=== PATIENT | male | born 1955 | race Caucasian/White ===

== ENCOUNTER 2018-04-30 05:12 | Inpatient (IN) ==
--- NOTE | 2018-04-29 12:12 | MH ---
cc: Andriy Alejandra MD DATE OF ADMISSION: 04/30/2018 He is to be admitted to the hospital 04/30/2018. ADMITTING DIAGNOSIS: Osteoarthritis, right knee. HISTORY OF PRESENT ILLNESS: The patient is a 63-year-old white male who has experienced pain of his right knee of greater than 1 year duration. His history is significant for having been diagnosed with osteoarthritis of his left knee, for which he did undergo a total knee arthroplasty in August 2015. The patient was noted to have tolerated his operative procedure well and his postoperative course was unremarkable thereafter. He presented to the office in April of this past year reporting that he was becoming progressively more symptomatic with pain about his right knee, having difficulty with any prolonged standing activities for which he was taking meloxicam on a daily basis. His x-ray studies revealed obvious degenerative changes with [id number] apposition about the medial compartment, associated with a varus deformity of at least 10 degrees magnitude and hypertrophic changes along the lateral aspect of the knee joint and secondary involvement of the patellofemoral articulation. Findings and treatment options were reviewed with the patient at that time. The pros and cons of continued conservative management versus operative intervention involving total knee arthroplasty were outlined in detail. Once again, it was emphasized to the patient that the decision to proceed with surgery would be left entirely to his discretion. The patient elected to continue with exercise activities at that time following the protocol that he had been instructed with regard to his previous treatment. He unfortunately remains symptomatic with pain about of his right knee that became more pronounced with the passage of time. He returned to the office in more recent followup disposition reporting that he was having ongoing difficulty about the right knee that was interfering with all ambulatory activities and feeling that he had progressed to a point in time where he was ready to proceed with surgery as discussed. His x-ray studies confirmed obvious degenerative changes throughout the medial aspect of his knee with secondary involvement of the patellofemoral articulation and residual varus deformity of at least 10 degrees magnitude. In compliance with the patient's request, he was thus scheduled for admission at this time in order that the above be accomplished. PAST MEDICAL HISTORY, HOSPITALIZATIONS AND SURGERIES: In addition to his left total knee arthroplasty have included arthroscopic surgery of his right knee, tonsillectomy, laser surgery of the left eye for a torn retina colonoscopy. The patient denies any active medical illnesses. He has been taking meloxicam 15 mg daily. ALLERGIES: HE DENIES ANY KNOWN DRUG ALLERGIES. REVIEW OF SYSTEMS: Wears contact lenses and utilizes glasses for reading purposes. No headache, seizure or syncope; occasional sinus congestion secondary to environmental irritant. No epistaxis. Auditory acuity intact, occasional tinnitus. No bleeding gums or dysphagia. No cough, shortness of breath, upper respiratory infection, pneumonia, or tuberculosis. No angina or heart disease. Appetite is good. Bowel movements are regular. No hepatitis, gallbladder disease, ulcers or hemorrhoids. No urinary tract infection, no kidney stones. There is history of fracture of his left elbow during childhood, treated by cast immobilization. No psychiatric illness. Remaining review of systems is unremarkable and noncontributory. FAMILY HISTORY: 23 years. 65 years of age, in good health. One stepdaughter indicated to be in good health. FAMILY HISTORY: Positive for hypertension and heart disease. SOCIAL HISTORY: The patient completed a college education. He is actively employed. Denies active use of tobacco. Ethanol consumption in the form of an occasional beer. PHYSICAL EXAMINATION: VITAL SIGNS: Height 6 feet 2 inches, weight 243 pounds. GENERAL: An alert, oriented, and responsive 63-year-old white male who sits quietly upon the examination table in no obvious distress. HEAD, EARS, EYES, NOSE AND THROAT: Pupils are equally round and reactive to light. Extraocular movements full. Sclerae are clear. External nares clear. External auditory canals clear. Dental intact. Mucous membranes pink and moist. Pharynx clear. NECK: Supple. Active range of motion with no appreciable pain. Carotid pulse is palpable bilaterally. Trachea midline. Thyroid without thyroid enlargement. LUNGS: Clear to auscultation and percussion. No CVA tenderness. No discomfort throughout the dorsolumbar spine. HEART: Regular rate and rhythm. No murmur or gallop. ABDOMEN: Soft, nontender, bowel sounds present. RECTAL: Per primary care physician. EXTREMITIES: Right knee: No appreciable swelling or effusion. No joint line tenderness. Apprehension and compression sign negative. Limited mobility towards the extreme of flexion with crepitation elicited. No collateral ligamentous laxity. Janeen test and drawer sign negative. Pivot shift and Rosangela sign positive for medial compartment pain. Distal sensory grossly intact. Independent gait. NEUROLOGIC: Cranial nerves 2-12 grossly intact. IMPRESSION: Osteoarthritis, right knee. PLAN: Right total knee arthroplasty: The nature of the planned surgical procedure, the potential complications and risks associated, the expectations of surgery and the consent form were thoroughly reviewed with the patient in the presence of his prior to admission to the hospital. The patient has indicated his full understanding regarding all of the above and given consent to proceed with treatment as outlined. Medical evaluation and clearance for surgery completed by his primary care physician, Dr. Smith. MD NEO Baez/carlos , 11:43 AM , 11:57 AM
[2018-04-30] MEDS ORDERED: Metoprolol Tartrate 25 MG Tablet PO ONE (05:43)
[2018-04-30] MEDS ORDERED: Chlorhexidine Gluconate 2% 1 Pack (2 Cloths) TOPICAL ONE (05:43)
[2018-04-30] MEDS ORDERED: Sodium Chlor 0.9% Inj 50 ML, Bupivacaine Liposo PF 1.3% Inj 20 ML, Bupivacaine PF 0.25%... P-ARTICULR SCH ×3 (05:46)
[2018-04-30] MEDS ORDERED: Tranexamic Acid Inj 1,000 MG in Sodium Chlor 0.9% Inj 100 ML IV.SIG SCH ×3 (06:00→10:30)
[2018-04-30] MEDS ORDERED: Sodium Chlor 0.9% Inj 500 ML IV.SIG SCH (06:00)
[2018-04-30] MEDS ORDERED: ceFAZolin 2 GM Premix Inj 2 GM/50 ML PIGGYBACK IV.SIG SCH (06:00)
[2018-04-30] MEDS ORDERED: TRANEXAMIC ACID IV.SIG SCH ×2 (06:00→08:50)
[2018-04-30] MEDS ORDERED: SODIUM CHLOR 0.9% IV.SIG SCH ×2 (06:00→08:50)
[2018-04-30] MEDS ORDERED: Lidocaine PF 1% Inj 5 ML Vial ONE (06:14)
[2018-04-30] MEDS ORDERED: Lidocaine PF 1% Inj 5 ML Syringe OTHER ONE (06:43)
[2018-04-30] MEDS ORDERED: Ketorolac Inj 30 MG/ML (IVP) Vial IV.PUSH ONE (06:43)
[2018-04-30] MEDS ORDERED: Glycopyrrolate Inj 1 MG/5 ML Syringe IV.PUSH ONE (06:43)
[2018-04-30] MEDS ORDERED: Neostigmine Inj 5 MG/5 ML Syringe IV.PUSH ONE (06:43)
[2018-04-30] MEDS ORDERED: fentaNYL Citrate Inj 100 MCG/2 ML Ampul ONE ×2 (09:16→09:18)
[2018-04-30] MEDS ORDERED: Morphine Inj 4 MG/ML Vial ONE (09:16)
[2018-04-30] MEDS ORDERED: Morphine Inj 4 MG/ML Vial IV.PUSH PRN (09:23)
[2018-04-30] MEDS ORDERED: Aluminum/Magnesium/Simethacone Susp 30 ML UDC PO PRN (09:23)
[2018-04-30] MEDS ORDERED: Zolpidem Tartrate 5 MG Tablet PO PRN (09:23)
[2018-04-30] MEDS ORDERED: Morphine Inj 30 MG/30 ML PCA.VIAL PCA PRN (09:23)
[2018-04-30] MEDS ORDERED: Tranexamic Acid Inj 1,000 MG in Sodium Chlor 0.9% Inj 100 ML IV.SIG ONE (09:23)
[2018-04-30] MEDS ORDERED: Post-op Orders (for Pharmacy) OTHER STA (09:23)
[2018-04-30] MEDS ORDERED: Bisacodyl 10 MG Supp RECTAL PRN (09:23)
[2018-04-30] MEDS ORDERED: Naloxone Inj 0.4 MG/ML Vial IV.PUSH PRN (09:23)
--- NOTE | 2018-04-30 09:25 | P.DCO ---
- Diagnosis (1) Degenerative joint disease of knee, right Status: Acute - Physical Therapy Order: Evaluate and treat, Improve ambulation, Strength and gait training - Home Health Nursing Order: Wound care and dressing changes, Nursing assessment with vital signs - Executive Secretary Social Welfare Order: To evaluate: Living conditions/environment, Support services Order: To provide: Long range planning, Community services - Case Management Consult Case Management Consult-Home Health: Yes - Certification I have seen patient Shannan Kaiser on 04/30/18. My clinical findings support the need for the requested home health care services because: Limited ability to care for self, High risk of falls I certify that my clinical findings support that this patient is homebound because: Post-op weakness, Unsteady gait/balance, Unsafe to leave home unassisted (1) Degenerative joint disease of knee, right Qualifiers: Osteoarthritis type: primary Qualified Code(s): M17.11 - Unilateral primary osteoarthritis, right knee
[2018-04-30] MEDS ORDERED: Morphine Inj 30 MG/30 ML PCA.VIAL PCA ONE (09:34)
[2018-04-30] MEDS ORDERED: *morphine SULFATE 4 MG/ML PERIprocedure ONLY ONE ×2 (09:35→10:05)
[2018-04-30] MEDS ORDERED: *Meperidine Inj 25 MG/ML Vial PERIprocedural Use ONLY ONE (09:36)
--- NOTE | 2018-04-30 09:50 | MP ---
cc: Andriy Alejandra MD DATE OF OPERATION: 04/30/2018 PREOPERATIVE DIAGNOSIS: Osteoarthritis, right knee. POSTOPERATIVE DIAGNOSIS: Osteoarthritis, right knee. PROCEDURE PERFORMED: Right total knee arthroplasty. SURGEON: Andriy Alejandra MD. ANESTHESIA: General endotracheal. INDICATIONS: A 63-year-old white male with a history of pain of his right knee of greater than 1 year duration. He had undergone previous evaluation and diagnosed as having osteoarthritis of his left knee for which he had completed a total knee arthroplasty in 08/2015. He tolerated the operative procedure well and his postoperative course was unremarkable thereafter. He presented to the office in April of this past year reporting that he was becoming progressively more symptomatic with a similar pain about his right knee, having difficulty with any prolonged standing activities. He has been taking meloxicam on a daily basis. His x-ray studies revealed obvious degenerative changes with [id number] apposition about the medial compartment, associated with a varus deformity, I believe, 10 degrees in magnitude and hypertrophic changes along the lateral aspect of the joint and secondary involvement of the patellofemoral articulation. Findings and treatment options were reviewed. The pros and cons of continued conservative management versus operative intervention involving total knee arthroplasty were outlined. Once again, it was emphasized that the decision to proceed with surgery would be left entirely to the patient's discretion. Initially, the patient elected to continue with exercise activities following the protocol that he had been instructed in the past. Unfortunately, the symptoms became more pronounced with time. He returned to the office in more recent followup indicating that he felt he had arrived at that point in time where he was ready to proceed with surgery as previously discussed. In compliance with his wishes, he was scheduled for admission at this time in order that the above be accomplished. FORMAT: Following the induction of satisfactory general anesthesia by endotracheal intubation as completed per the department of anesthesia, a tourniquet was established around the proximal portion of the right lower extremity. The extremity proper was isolated with a U-drape, thereafter being prepped with Betadine solution and draped into a sterile field in the routine manner. Prior to initiation of the actual procedure, the standard timeout protocol was completed. All parameters were appropriately addressed and confirmed by operating room personnel. The extremity was elevated for approximately 1 minute and the tourniquet thus inflated to 250 mmHg pressure. A sharp skin incision was initiated midline over the anterior aspect of the knee and developed through underlying subcutaneous tissue with hemostasis maintained by electrocautery. By deepening dissection, the anterior capsule was exposed. A medial capsulotomy completed and the patella subluxed in a lateral orientation. Examination of the joint space revealed severe tricompartmental degenerative changes as well as absence of the anterior cruciate ligament. The articular surface of the patella was resected with power saw, the 3-holed guide utilized for establishing post-holes. Medial and lateral meniscus structures were sharply excised. A centering hole was placed in the distal aspect of the femur, allowing positioning of the intramedullary guide. The distal femoral cutting jig attached and the distal femur resected. AP measurement of 70 mm sizing to be appropriate. The matching cutting block was positioned. Anterior, posterior, and chamfer cuts were completed. Tibial plateau was thereafter subluxed in an anterior orientation allowing positioning of the extramedullary guide. Tibial plateau was resected and measured with a 3 mm sizing determined to be satisfactory. Trial reduction followed utilizing a 70 mm anatomic femoral component, an 83 mm tibial base with 10, 12, 14, and 16 mm bearing inserts trialed in sequential fashion. The 16 mm thickness was determined to be the most favorable fit. The knee was readily brought to full extension. There was no laxity with varus and valgus stress at both 0 and 90 degrees flexed posture. Orientation was confirmed as appropriate with measurement of the pelvic guide through the mechanical access of the knee. Trial reduction followed utilizing a 34 mm patellar button. Once again, good tracking noted, no tendency towards subluxation. All trial components being removed, the remaining portion of the proximal tibia was prepared for insertion of the permanent component. Joint space thoroughly lavaged with pulsating antibiotic solution. Hemostasis was maintained by electrocautery. An autogenous bone plug was inserted into the distal femoral guide hole and thereafter a preparation of Biomet bone cement was utilized in inserting knee components in a sequential fashion, which included an 83 mm fixed cruciate tibial plate, to which a 16 mm Vanguard tibial bearing insert was secured with locking cox. The 70 mm Vanguard femoral component was firmly seated onto the distal femur, excess cement being removed. The knee was brought to full extension and thereafter the 34 mm standard 3 post-patellar button was attached and maintained in place with patellar clamp while cement hardening was completed. Final range of motion assessment noted good tracking stability throughout the knee. Irrigation repeated with hemostasis maintained. Autovac drain tubes were inserted through superior stab wounds. The capsule was repaired with 0 Vicryl suture. Remaining portion of the wound was closed in layers in the routine manner with skin margins being reapproximated with a running subcuticular 3-0 Vicryl suture over which Steri-Strips were applied. Xeroform gauze and dry sterile dressing placed. An Exparel cocktail was injected both pre and post-implantation. Anesthesia was discontinued and the patient was transferred to a hospital bed and returned to the recovery room in satisfactory condition, having tolerated the operation well. Total tourniquet time was 50 minutes. ESTIMATED BLOOD LOSS: Approximately 350 mL per anesthesia. Andriy Alejandra MD NBS/ts , 09:13 AM , 09:25 AM
[2018-04-30] MEDS ORDERED: Acetaminophen 325 MG Tablet PO PRN (10:00)
--- NOTE | 2018-04-30 10:45 | XR ---
EXAM DATE: 04/30/2018 10:42 AM EST AGE/SEX: 63 years / Male INDICATIONS: Post op right knee surgery. CLINICAL DATA: This is the patient's initial encounter. Patient reports that signs and symptoms have been present for 1 day and indicates a pain score of 0/10. MEDICAL/SURGICAL HISTORY: None. None. COMPARISON: No prior exams available for comparison. FINDINGS: Right knee arthroplasty in place. A thoracic components are well-positioned and in normal anatomic al ignment. No acute fracture. Immediate postsurgical soft tissue changes. CONCLUSION: 1. Right knee arthroplasty in anatomic alignment without acute fracture. Electronically signed by: Brain Xie MD Board Certified Radiologist 04/30/2018 10:43 AM FAIZA T
[2018-04-30] MEDS: ceFAZolin Inj 1 GM in Sodium Chlor 0.9% Inj 100 ML IV.SIG SCH ×2 (12:59→18:05)
--- NOTE | 2018-04-30 14:46 | P.CONIM ---
History of Present Illness Service: Hospitalist Consult date: 04/30/18 Requesting Physician: Andriy Alejandra Reason for Consult: Assist with medical management Primary Care Provider: Kevin Smith MD Chief Complaint: Right knee pain History of Present Illness: This is a 63yo male patient with a PMHX significant for osteoarthritis bilateral knees who underwent an elective left total knee replacement surgery in 2016 who was admitted after trying and failing numerous attempts at conservative therapy for ongoing right knee pain and disability and underwent elective right total knee replacement performed by Dr. Alejandra earlier today. Hospitalist services have been consulted to assist with ongoing medical management. Patient seen and examined. Patient does not voice any acute medical complaints or concerns. He states his postop pain is well controlled at this time. He denies any fever or chills. Denies any chest pain or shortness of breath. Denies any nausea, vomiting or abdominal pain. He denies any urinary difficulties, diarrhea or constipation. Patient had an approximate 350 mL of blood loss in surgery per operative note. Patient is currently afebrile. O2 sats are 93% on room air. Blood pressure is normotensive. Review of Systems Review of Systems: all other systems reviewed are negative PMFSH History History Provided By: Patient and Significant Other ( at the bedside) Medical History Medical History Osteoarthritis of both knees (Acute) Arthritis (Acute) Surgical History Surgical History History of tonsillectomy (Acute) History of left knee replacement (Acute) Family History Family History Father Heart disease Mother Glaucoma Social History Social History Substance History: No History of Abuse Second Hand Smoke Exposure: No Smoking Status: Never smoker How Often Do You Have a Drink Containing Alcohol: 2 to 4 times a month Recent Travel in [facility] within the Last 8 Weeks: Yes Recent Out of Country Travel within the Last 8 Weeks: No Medications and Allergies Allergies Allergy/AdvReac Type Severity Reaction Status Date / Time No Known Allergies Allergy Verified 04/30/18 05:49 Home Medications Medication Instructions Recorded Confirmed Type meloxicam 15 mg PO DAILY 04/29/18 04/30/18 History Active Medications: Active Medications Acetaminophen (Ofirmev Inj) 1,000 mg IV.SIG LAW ENFORCEMENT DIRECTOR PRN PRN Reason: PRE-OP GIVE LAW ENFORCEMENT DIRECTOR TO OR Stop: 04/30/18 22:00 Last Admin: 04/30/18 06:00 Dose: 1,000 mg Acetaminophen (Tylenol) 650 mg PO Q6H PRN PRN Reason: FEVER > 102 F Hydrocodone Bitart/Acetaminophen ([place] 5/325) 1 tab PO Q4H PRN PRN Reason: PAIN LESS THAN 5 ON SCALE Hydrocodone Bitart/Acetaminophen ([place] 5/325) 2 tab PO Q6H PRN PRN Reason: PAIN SCALE 5 TO 10 Al Hydrox/Mg Hydrox/Simethicone (Mag-Al Plus Susp Liq) 30 ml PO Q6H PRN PRN Reason: INDIGESTION Al Hydroxide/Mg Hydroxide (Milk Of Magnesia Liq) 30 ml PO BID PRN PRN Reason: Mild Constipation Aspirin (Aspirin) 325 mg PO BID JO Bisacodyl (Dulcolax Supp) 10 mg RECTAL DAILY PRN PRN Reason: SEVERE CONSITIP. PO INTOLERABL Sodium Chloride 50 ml/Bupivacaine Liposome 20 ml/Bupivacaine HCl 50 ml 0 ml P- ARTICULR UNSCH X1 [facility] Stop: 04/30/18 15:00 Last Admin: 04/30/18 07:31 Dose: 120 bag Lactated Ringer's (Lr 1000 Ml Inj) 1,000 mls @ 30 mls/hr IV.SIG .Q24H [facility] Stop: 05/01/18 05:44 Last Admin: 04/30/18 05:55 Dose: 30 mls/hr Sodium Chloride (Ns Inj) 500 mls @ 30 mls/hr IV.SIG .Q10H [facility] Last Admin: 04/30/18 06:06 Dose: Not Given Tranexamic Acid 1,000 mg/ (Sodium Chloride) 110 mls @ 200 mls/hr IV.SIG ONCE [facility] Stop: 04/30/18 15:02 Last Infusion: 04/30/18 10:35 Dose: Infused Cefazolin Sodium 1 gm/ Sodium (Chloride) 100 mls @ 200 mls/hr IV.SIG Q6H [facility] Stop: 05/01/18 01:29 Last Admin: 04/30/18 12:59 Dose: 200 mls/hr Lactated Ringer's (Lr 1000 Ml Inj) 1,000 mls @ 80 mls/hr IV.CONT .[id number] [facility] Last Admin: 04/30/18 09:56 Dose: 80 mls/hr Morphine Sulfate (Morphine Inj) 30 mg in 30 mls @ 0 mls/hr KEY ATTENDANT UNSCH PRN PRN Reason: prn pain Last Admin: 04/30/18 09:45 Dose: 0 mls/hr Lactulose (Lactulose Liq) 30 ml PO DAILY PRN PRN Reason: SEVERE CONSITIPATION Miscellaneous Information ([facility] Nursing Information) 0 each OTHER UNSCH PRN PRN Reason: SEE DOSE INSTRUCTIONS Miscellaneous Information ([facility] Nursing Information) 1 each OTHER UNSCH PRN PRN Reason: SEE LABEL COMMENTS Stop: 05/01/18 09:04 Morphine Sulfate (Morphine Inj) 2 mg IV.PUSH Q3H PRN PRN Reason: BREAKTHROUGH PAIN Naloxone HCl (Narcan Inj) 0.4 mg IV.PUSH PRN PRN PRN Reason: Resp rate < 10 Ondansetron HCl (Zofran Inj) 4 mg IV.PUSH Q6H PRN PRN Reason: NAUSEA OR VOMITING Povidone Iodine (Betadine 7.5% Scrub) 1 applicatio TOPICAL ONCE [facility] Stop: 05/04/18 05:59 Last Admin: 04/30/18 06:00 Dose: 1 applicatio Senna/Docusate Sodium (Alexandrea-Colace) 1 tab PO BID [facility] Sennosides (Senokot) 17.2 mg PO BID PRN PRN Reason: Moderate Constipation Sodium Chloride (Ns Flush) 2 ml IV.FLUSH BID [facility] Sodium Chloride (Ns Flush) 2 ml IV.FLUSH PRN PRN PRN Reason: FLUSH AFTER USING IV ACCESS Zolpidem Tartrate (Ambien) 5 mg PO HS PRN PRN Reason: INSOMNIA Physical Exam Vital signs: Vital Signs 04/30/18 05:54 04/30/18 06:11 04/30/18 09:10 Temperature 98.2 F 97.4 F L Pulse Rate 65 63 Respiratory Rate 20 15 Blood Pressure 123/74 135/64 Pulse Oximetry 97 100 97 04/30/18 09:15 04/30/18 09:30 04/30/18 09:45 Temperature Pulse Rate 50 L 49 L 54 L Respiratory Rate 15 15 15 Blood Pressure 123/59 L 110/56 L 120/55 L Pulse Oximetry 96 96 97 04/30/18 09:55 04/30/18 10:00 04/30/18 10:07 Temperature Pulse Rate 54 L Respiratory Rate 15 15 15 Blood Pressure 124/62 Pulse Oximetry 98 98 04/30/18 10:15 04/30/18 10:30 04/30/18 11:25 Temperature Pulse Rate 62 60 Respiratory Rate 14 14 Blood Pressure 119/64 100/52 L Pulse Oximetry 98 97 97 04/30/18 11:30 04/30/18 12:00 04/30/18 13:00 Temperature 97.5 F L Pulse Rate 81 61 82 Respiratory Rate 14 16 16 Blood Pressure 109/63 108/62 110/67 Pulse Oximetry 96 99 94 L 04/30/18 13:05 04/30/18 14:00 Temperature 97.3 F L Pulse Rate 66 Respiratory Rate 19 Blood Pressure 111/61 Pulse Oximetry 94 L 93 L Intake & Output 04/29/18 04/30/18 04/30/18 18:59 06:59 18:59 Intake Total 1610 / 1610 Output Total 460 / 460 Balance 1150 / 1150 Weight 109.9 kg Intake: IV 270 / 270 Cyklokapron Inj 1,000 MG In NS 220 / 220 Inj 100 ML @ 200 mls/hr IV.SIG ONCE JO Rx#:[id number] Ancef 2 GM Premix Inj 2 gm In 50 / 50 50 ml @ 100 mls/hr IV.SIG LAW ENFORCEMENT DIRECTOR JO Rx#:[id number] Oral 300 / 300 Anesthesia Amount 1040 / 1040 Output: Estimated Blood Loss 350 / 350 Wound Drainage 110 / 110 # 1 Right Knee 110 / 110 Other: Weight On Admission 109.9 kg Narrative: GENERAL: Well-developed well-nourished male patient in no acute distress. Awake and alert. Appears comfortable. is at the bedside. SKIN: Warm and dry. HEAD: Atraumatic. Normocephalic. EYES: Pupils equal and round. No scleral icterus. No injection or drainage. ENT: No nasal bleeding or discharge. Mucous membranes pink and moist. NECK: Trachea midline. CARDIOVASCULAR: Regular rate and rhythm. No murmur appreciated. RESPIRATORY: No accessory muscle use. Clear to auscultation. Breath sounds equal bilaterally. GASTROINTESTINAL: Abdomen soft, non-tender, nondistended. +Hypoactive BS MUSCULOSKELETAL: s/p right total knee arthroplasty, postop dressing in place, C/ D/I, + cryotherapy. LLE NV intact distally. Good capillary refill. NEUROLOGICAL: Awake and alert. No obvious cranial nerve deficits. Motor grossly within normal limits. Normal speech. PSYCHIATRIC: Appropriate mood and affect; insight and judgment normal. Results Imaging Impressions Knee X-Ray 04/30/18 09:19 CONCLUSION: 1. Right knee arthroplasty in anatomic alignment without acute fracture. ABG Impressions Knee X-Ray 04/30/18 09:19 CONCLUSION: 1. Right knee arthroplasty in anatomic alignment without acute fracture. Assessment and Plan (1) Degenerative joint disease of knee, right: Code(s): M17.11 - Unilateral primary osteoarthritis, right knee Status: Acute Plan 63-year-old male past medical history significant for osteoarthritis who tried and failed attempts at conservative therapy for right knee pain and underwent elective right total knee replacement earlier today by Dr. Alejandra. Hospitalist service is consulted to assist with ongoing medical management. Osteoarthritis of the right knee, failed attempts at conservative therapy Status post right total knee replacement 04/[address] Alejandra -Management per orthopedic service -Pain medication with bowel regimen -Monitor postoperative CBC and electrolytes -PT eval/tx DVT prophylaxis -Per orthopedic service Thank you very kindly for this consultation. We will continue to follow patient along with you. Discussed Condition With: patient, nursing staff, Dr. King _ (1) Degenerative joint disease of knee, right Qualifiers: Osteoarthritis type: primary Qualified Code(s): M17.11 - Unilateral primary osteoarthritis, right knee
[2018-04-30] MEDS: Aspirin 325 MG Tablet PO SCH (20:19)
[2018-04-30] MEDS: Senna/Docusate Sodium 8.6/50 MG Tablet PO SCH (20:19)
[2018-05-01] MEDS: ceFAZolin Inj 1 GM in Sodium Chlor 0.9% Inj 100 ML IV.SIG SCH (00:27)
[2018-05-01 06:18] LABS: Hematocrit 34.3 % (39.0-51.0); Hemoglobin 11.6 gm/dL (13.0-17.0)
[2018-05-01 06:47] LABS: Anion Gap 6 meq/L (5-15); Blood Urea Nitrogen 11 mg/dL (7-18); Calcium 7.7 mg/dL (8.5-10.1); Carbon Dioxide 25.9 meq/L (21.0-32.0); Chloride 108 meq/L (98-107); Glomerular Filtration Rate Greater Than 89 mL/min (>89); Glucose,Random 120 mg/dL (74-106); Sodium 140 meq/L (136-145)
[2018-05-01] MEDS: Senna/Docusate Sodium 8.6/50 MG Tablet PO SCH ×2 (08:14→20:39)
[2018-05-01] MEDS: Aspirin 325 MG Tablet PO SCH ×2 (08:15→20:39)
[2018-05-01] MEDS ORDERED: Polyvinyl Alcohol/Povidone PF Opth Drops 0.4 ML Dropperette EACH EYE PRN (10:41)
--- NOTE | 2018-05-01 10:47 | P.PNIM ---
Subjective Interval history: Follow-up on patient status post elective right total knee replacement. Patient seen and examined. Patient is complaining of dry eyes. He denies any fever or chills. Denies any chest pain or shortness of breath. Physical Exam Vital signs: Vital Signs 04/30/18 11:25 04/30/18 11:30 04/30/18 12:00 Temperature Pulse Rate 81 61 Respiratory Rate 14 16 Blood Pressure 109/63 108/62 Pulse Oximetry 97 96 99 04/30/18 13:00 04/30/18 13:05 04/30/18 14:00 Temperature 97.5 F L 97.3 F L Pulse Rate 82 66 Respiratory Rate 16 19 Blood Pressure 110/67 111/61 Pulse Oximetry 94 L 94 L 93 L 04/30/18 16:00 04/30/18 20:00 05/01/18 00:00 Temperature 96.6 F L 98.1 F 97.9 F Pulse Rate 62 74 72 Respiratory Rate 16 17 17 Blood Pressure 107/58 L 107/64 108/68 Pulse Oximetry 90 L 94 L 95 05/01/18 04:25 Temperature 97.9 F Pulse Rate 71 Respiratory Rate 18 Blood Pressure 107/64 Pulse Oximetry 95 Intake & Output 04/30/18 05/01/18 05/01/18 18:59 06:59 18:59 Intake Total 1810 / 1810 880 / 880 1000 / 1000 Output Total 1160 / 1160 2280 / 2280 Balance 650 / 650 -1400 / -1400 1000 / 1000 Weight 109.9 kg 109.9 kg Intake: IV 470 / 470 100 / 100 1000 / 1000 LR 1000 mL Inj 1,000 ML @ 80 1000 / 1000 mls/hr IV.CONT .[id number] JO Rx# :[id number] Cyklokapron Inj 1,000 MG In NS 220 / 220 Inj 100 ML @ 200 mls/hr IV.SIG ONCE JO Rx#:[id number] Ancef 2 GM Premix Inj 2 gm In 50 / 50 50 ml @ 100 mls/hr IV.SIG SALES PERSON JO Rx#:[id number] Ancef Inj 1 GM In NS Inj 100 ML 200 / 200 100 / 100 @ 200 mls/hr IV.SIG Q6H JO Rx #:[id number] Oral 300 / 300 780 / 780 Anesthesia Amount 1040 / 1040 Output: Urine 1900 / 1900 Estimated Blood Loss 350 / 350 Urine Amount (Catheter) 700 / 700 Straight 700 / 700 Wound Drainage 110 / 110 380 / 380 # 1 Right Knee 110 / 110 380 / 380 Other: Date of Last Bowel Movement 04/29/18 04/29/18 04/29/18 # Bowel Movements 0 Narrative: GENERAL: Well-developed well-nourished male patient in no acute distress. Awake and alert. Appears comfortable sitting up in bed watching TV. SKIN: Warm and dry. No generalized rash. HEENT: Atraumatic. Pupils equal and round. No scleral icterus. No nasal discharge. Mucous membranes pink and moist. NECK: Trachea midline. CARDIOVASCULAR: Regular rate and rhythm. No murmur appreciated. RESPIRATORY: No accessory muscle use. Clear to auscultation. Breath sounds equal bilaterally. GASTROINTESTINAL: Abdomen soft, non-tender, nondistended. +BS. MUSCULOSKELETAL: s/p right total knee arthroplasty, postop dressing in place, C/ D/I, hemovac drain in place. RLE NV intact distally. Good capillary refill. NEUROLOGICAL: Awake and alert. No obvious cranial nerve deficits. Motor grossly within normal limits. Normal speech. PSYCHIATRIC: Calm and cooperative. Urinary Catheter Management Straight: Cath placed during this visit: yes, but has since been removed by the nurse Reason for continuing: Not indwelling catheter Insertion date: 04/30/18 Insertion time: 17:10 Removal date: 04/30/18 Removal time: 17:20 Results Labs CBC & Chem 7: 05/01/18 04:52 05/01/18 05:42 Imaging Imaging: Impressions Knee X-Ray 04/30/18 09:19 CONCLUSION: 1. Right knee arthroplasty in anatomic alignment without acute fracture. Assessment and Plan (1) Degenerative joint disease of knee, right: Code(s): M17.11 - Unilateral primary osteoarthritis, right knee Status: Acute Plan 63-year-old male past medical history significant for osteoarthritis who tried and failed attempts at conservative therapy for right knee pain and underwent elective right total knee replacement earlier today by Dr. Aljeandra. Hospitalist service is consulted to assist with ongoing medical management. Osteoarthritis of the right knee, failed attempts at conservative therapy Status post right total knee replacement 04/[address] Alejandra -Management per orthopedic service -Pain medication with bowel regimen -hemovac drain in place with 490ml output -continue with PT Anemia, postoperative anemia acute blood loss, mild -No evidence of active bleeding -Continue to monitor CBC as indicated Dry eyes -Refresh eye gtts prn DVT prophylaxis -Per orthopedic service ASA 325mg BID Discussed Condition With: patient, nursing staff, Dr. King Attending Attestation The exam, history, and the medical decision-making described in the above note were completed with the assistance of the mid-level provider. I reviewed and agree with the findings presented. I attest that I had a [id number] encounter with the patient on the same day, and personally performed and documented my assessment and findings in the medical record. Patient seen and examined. He reports that he is feeling okay. Pain is controlled. ON exam: Normal S1, S2. Lungs clear to auscultation bilaterally. s/p right total knee arthroplasty, postop dressing inntact, hemovac drain in place. A/P: Patient is doing well postop. 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 PO pain meds as needed. Progress Note: Quality VTE Deep Vein Thrombosis/Pulmonary Embolism Present on Admission: No _ (1) Degenerative joint disease of knee, right Qualifiers: Osteoarthritis type: primary Qualified Code(s): M17.11 - Unilateral primary osteoarthritis, right knee
[2018-05-02 06:44] VITALS: O2SAT 95
[2018-05-02] MEDS: Aspirin 325 MG Tablet PO SCH (08:09)
[2018-05-02 08:22] VITALS: BP 132/64; PULSE 70; RESP 18; TEMP 98
--- NOTE | 2018-05-02 08:30 | P.PNIM ---
Subjective Interval history: Follow-up on patient status post elective right total knee replacement. Patient seen and examined. Patient does not voice any acute medical complaints or concerns. He reports good night sleep. States his pain is well controlled. He tells me he thinks he is going home today. He denies any fever or chills. Denies any chest pain or shortness of breath. He denies any nausea, vomiting or abdominal pain. Physical Exam Vital signs: Vital Signs 05/01/18 11:48 05/01/18 16:00 05/01/18 19:32 Temperature 98.1 F 98.2 F 97.5 F L Pulse Rate 77 75 77 Respiratory Rate 18 17 17 Blood Pressure 122/68 142/99 H 130/59 L Pulse Oximetry 96 96 97 05/02/18 00:48 05/02/18 04:00 05/02/18 08:22 Temperature 98.1 F 97.2 F L 98.0 F Pulse Rate 89 75 70 Respiratory Rate 18 20 18 Blood Pressure 122/64 143/67 H 132/64 Pulse Oximetry 97 95 95 Intake & Output 05/01/18 05/02/18 05/02/18 18:59 06:59 18:59 Intake Total 1999 / 1999 Output Total 250 / 250 2500 / 2500 Balance 1750 / 1750 -2500 / -2500 Intake: IV 1999 / 1999 LR 1000 mL Inj 1,000 ML @ 80 1000 / 1000 mls/hr IV.CONT .[id number] [facility] Rx# :[id number] Output: Urine 2500 / 2500 Wound Drainage 250 / 250 # 1 Right Knee 250 / 250 Other: # Voids 2 Date of Last Bowel Movement 04/29/18 04/29/18 Narrative: GENERAL: Well-developed well-nourished male patient in no acute distress. Awake and alert. SKIN: Warm and dry. No generalized rash. HEENT: Atraumatic. Pupils equal and round. No nasal discharge. Mucous membranes pink and moist. NECK: Trachea midline. CARDIOVASCULAR: Regular rate and rhythm. No murmur appreciated. RESPIRATORY: No accessory muscle use. Clear to auscultation. Breath sounds equal bilaterally. GASTROINTESTINAL: Abdomen soft, non-tender, nondistended. +BS. MUSCULOSKELETAL: s/p right total knee arthroplasty, postop dressing in place, C/ D/I. Hemovac drain has been removed. RLE NV intact distally. Good capillary refill. NEUROLOGICAL: Awake and alert. No obvious cranial nerve deficits. Motor grossly within normal limits. Normal speech. PSYCHIATRIC: Calm and cooperative. Urinary Catheter Management Straight: Cath placed during this visit: yes, but has since been removed by the nurse Reason for continuing: Not indwelling catheter Insertion date: 04/30/18 Insertion time: 17:10 Removal date: 04/30/18 Removal time: 17:20 Results Labs CBC & Chem 7: 05/01/18 04:52 05/01/18 05:42 Assessment and Plan (1) Degenerative joint disease of knee, right: Code(s): M17.11 - Unilateral primary osteoarthritis, right knee Status: Acute Plan 63-year-old male past medical history significant for osteoarthritis who tried and failed attempts at conservative therapy for right knee pain and underwent elective right total knee replacement earlier today by Dr. Alejandra. Hospitalist service is consulted to assist with ongoing medical management. Osteoarthritis of the right knee, failed attempts at conservative therapy Status post right total knee replacement 04/[address] Alejandra -Management per orthopedic service -Pain medication with bowel regimen -continue with PT -plan for discharge today with [facility] Anemia, postoperative anemia acute blood loss, mild -No evidence of active bleeding -Continue to monitor CBC as indicated Dry eyes -Refresh eye gtts prn DVT prophylaxis -Per orthopedic service ASA 325mg BID Discussed Condition With: patient, nursing staff, Dr. King Progress Note: Quality VTE Deep Vein Thrombosis/Pulmonary Embolism Present on Admission: No _ (1) Degenerative joint disease of knee, right Qualifiers: Osteoarthritis type: primary Qualified Code(s): M17.11 - Unilateral primary osteoarthritis, right knee
--- NOTE | 2018-05-02 11:19 | MD ---
cc: Andriy Alejandra MD,Kevin Lemos MD DATE OF DISCHARGE: 05/02/2018 ADMITTING DIAGNOSIS: Osteoarthritis, right knee. DISCHARGE DIAGNOSIS: Osteoarthritis, right knee. HISTORY: A 63-year-old white male with a greater than 1-year history of right knee pain as related to osteoarthritis. Had conformed to conservative management in the past, but became progressively more symptomatic with pain that began to interfere with all weightbearing activities. His x-ray studies had revealed obvious degenerative changes with [id number] apposition about the medial compartment, associated with a varus deformity of at least 10 degrees magnitude and secondary involvement of the patellofemoral articulation. Findings and treatment options had previously been reviewed. The pros and cons of continued conservative management versus operative intervention involving total knee replacement were outlined in detail with emphasis being made that the decision to proceed with surgery would be left entirely to the patient's discretion. The patient readily admitted that he had progressed to at that point in time where he was ready to proceed accordingly; and in compliance with his wishes, he was scheduled for admission at this time in order that the above be accomplished. For additional details with regard to his pertinent history and physical findings, interested parties would be directed to the documentation of his admitting history and physical report. PHYSICAL EXAMINATION: His physical examination at the time of admission revealed no appreciable swelling or effusion about the right knee. No joint line tenderness. Apprehension and compression sign negative. Limited mobility toward the extreme of flexion with crepitation elicited. No collateral ligamentous laxity. Janeen test and drawer sign negative. Pivot shift and Rosangela sign positive for medial compartment pain. Distal sensory grossly intact. Independent gait. HOSPITAL COURSE: Prior to admission to the hospital, the patient had undergone medical evaluation and clearance for surgery as completed by his primary care physician, Dr. Smith. He was taken to the operating room 26 04/2018, and on that date underwent a right total knee arthroplasty completed in an uncomplicated manner. The patient was noted to have tolerated his operative procedure well. Postoperative course stable thereafter. Hemoglobin and hematocrit assessment postoperatively 11.6 and 34.3 respectively. The patient progressively mobilized under the guidance of physical therapy, being permitted weightbearing to tolerance about the right lower extremity. Followup examination of his surgical wound noted to be intact, healing favorably with no evidence of infection. Medical followup per the hospitalist service. DVT prophylaxis initiated. [employer] consult to assist with discharge planning. The patient had indicated his desire to be discharged home and continue his rehabilitation on an outpatient basis. Plans were finalized in this regard and pending medical clearance, he was scheduled for discharge on the second postoperative day, at which time he was noted making favorable progress with regard to his initial rehabilitation program. He was scheduled to be seen in office followup in approximately 4 weeks. CONDITION AT THE TIME OF DISCHARGE: Stable. PROGNOSIS: Favorable. DISCHARGE MEDICATIONS: Included hydrocodone 5/325, #30; aspirin 325 mg 1 tab twice daily for 3 weeks, #40. MD NEO Baez/anjana , 06:35 AM , 06:42 AM
== END 2018-05-02 10:32 | disposition home health service (06) | DRG 470 ==
LOC: HSDC 05:12 → EDSTATUS 07:00 → HSDI 09:19 → N06 13:43
PROVIDERS: ADMIT Orthopaedic Surgery; ATTEND Orthopaedic Surgery
CPT/HCPCS: 51798; 73560; 80048; 85014; 85018; 86850; 86900; 86901; 88305; 94150; 97110; 97116; 97150; 97162; 97167; C1776; C9290; J0131; J0690; J1100; J1580; J1885; J2175; J2250; J2270; J2405; J2704; J2710; J3010; J7120; L1830